=== PATIENT | male | born 1970 | race Caucasian/White ===

== ENCOUNTER 2016-09-16 12:31 | Emergency (ER) | payer OTHER ==
[2016-09-16 12:32] VITALS: BP 137/86; PULSE 98; RESP 20; TEMP 98.5; O2SAT 96
--- NOTE | 2016-09-16 12:51 | PD ---
Physical Exam Time Seen by Provider: 12:50 Narrative 45 y/o male here requesting psychiatric evaluation of suicidal thoughts for 30 years, becoming more consistent. Vital signs reviewed. Seen at triage desk. Awaiting bed placement. Data Data Last Documented VS Vital Signs Date Time Temp Pulse Resp B/P Pulse Ox O2 Delivery O2 Flow Rate FiO2 09/16/16 12:32 98.5 98 20 137/86 96 Room Air MDM Medical Record Reviewed: Yes Supervised Visit with LA: Satinder Chowdhury Sep 16, 2016 12:51
[2016-09-16 13:54] LABS: AUTOMATED NEUTROPHIL # 2.2 TH/MM3 (1.8-7.7); EOSINOPHIL # 0.1 TH/MM3 (0-0.4); EOSINOPHIL % 2.1 % (0.0-4.0); HEMATOCRIT 45.5 % (39.0-51.0); HEMO FLAGS DIFF FINAL; LYMPH % 32.9 % (9.0-44.0); LYMPHOCYTE # 1.3 TH/MM3 (1.0-4.8); MEAN CORPUSCULAR HEMOGLOBIN 33.5 PG (27.0-34.0); MEAN CORPUSCULAR HGB CONC 34.9 % (32.0-36.0); MONO % 8.7 % (0.0-8.0); NEUT % 55.3 % (16.0-70.0); PLATELET COUNT 177 TH/MM3 (150-450); RED BLOOD COUNT 4.74 MIL/MM3 (4.50-5.90); RED CELL DISTRIBUTION WIDTH 14.4 % (11.6-17.2)
--- NOTE | 2016-09-16 14:03 | PD ---
HPI Chief Complaint: Suicide Ideation/Attempt Time Seen by Provider: 14:03 Travel History International Travel<30 days: No Contact w/Intl Traveler<30days: No Traveled to known affect area: No History of Present Illness HPI 45-year-old male with history of depression, bipolar, previous suicide attempts 4, presents to emergency department for evaluation today. Patient states that he was attempting suicide by locking himself in a hotel room with a charcoal grill however his father found him. He states that he was in the room approximately 30 minutes prior to his father's arrival. States he doesn't feel well. Denies a significant headache. No shortness of breath. No chest pain. Patient states that he does drink heavily alcohol and is concerned about going into DTs here. Denies any other symptoms at this time. PFSH Past Medical History Depression: Yes Social History Alcohol Use: Yes Tobacco Use: No Substance Use: No Allergies-Medications (Allergen,Severity, Reaction): Coded Allergies: No Known Allergies (Unverified , 09/16/16) Reported Meds & Prescriptions Reported Meds & Active Scripts Active No Active Prescriptions or Reported Medications Review of Systems Except as stated in HPI: all other systems reviewed are Neg Physical Exam Narrative GENERAL: Well-nourished male patient, ambulatory and in no acute distress SKIN: Focused skin assessment warm/dry. HEAD: Atraumatic. Normocephalic. EYES: Pupils equal and round. No scleral icterus. No injection or drainage. ENT: No nasal bleeding or discharge. Mucous membranes pink and moist. NECK: Trachea midline. No JVD. CARDIOVASCULAR: Elevated rate and rhythm. No murmur appreciated. RESPIRATORY: No accessory muscle use. Clear to auscultation. Breath sounds equal bilaterally. GASTROINTESTINAL: Abdomen soft, non-tender, nondistended. Hepatic and splenic margins not palpable. MUSCULOSKELETAL: No obvious deformities. No clubbing. No cyanosis. No edema. NEUROLOGICAL: Awake and alert. No obvious cranial nerve deficits. Motor grossly within normal limits. Normal speech. Data Data Last Documented VS Vital Signs Date Time Temp Pulse Resp B/P Pulse Ox O2 Delivery O2 Flow Rate FiO2 09/16/16 14:58 100 Non-Rebreather 15.00 100 09/16/16 14:02 98 18 09/16/16 12:32 98.5 137/86 Orders Complete Blood Count With Diff (09/16/16 13:24) Comprehensive Metabolic Panel (09/16/16 13:24) Psych Screen (09/16/16 13:24) Drug Screen, Random Urine (09/16/16 13:24) Alcohol (Ethanol) (09/16/16 13:25) Salicylates (Aspirin) (09/16/16 13:25) Tylenol (Acetaminophen) (09/16/16 13:25) Arterial Blood Gas (Abg) (09/16/16 ) Oxygen Administration (09/16/16 14:03) Labs Laboratory Tests Test 09/16/16 09/16/16 13:35 14:25 White Blood Count 4.0 TH/MM3 Red Blood Count 4.74 MIL/MM3 Hemoglobin 15.9 GM/DL Hematocrit 45.5 % Mean Corpuscular Volume 96.0 FL Mean Corpuscular Hemoglobin 33.5 PG Mean Corpuscular Hemoglobin 34.9 % Concent Red Cell Distribution Width 14.4 % Platelet Count 177 TH/MM3 Mean Platelet Volume 7.1 FL Neutrophils (%) (Auto) 55.3 % Lymphocytes (%) (Auto) 32.9 % Monocytes (%) (Auto) 8.7 % Eosinophils (%) (Auto) 2.1 % Basophils (%) (Auto) 1.0 % Neutrophils # (Auto) 2.2 TH/MM3 Lymphocytes # (Auto) 1.3 TH/MM3 Monocytes # (Auto) 0.4 TH/MM3 Eosinophils # (Auto) 0.1 TH/MM3 Basophils # (Auto) 0.0 TH/MM3 CBC Comment DIFF FINAL Differential Comment Sodium Level 141 MEQ/L Potassium Level 3.8 MEQ/L Chloride Level 104 MEQ/L Carbon Dioxide Level 26.7 MEQ/L Anion Gap 10 MEQ/L Blood Urea Nitrogen 8 MG/DL Creatinine 1.02 MG/DL Estimat Glomerular Filtration 78 ML/MIN Rate Random Glucose 78 MG/DL Calcium Level 8.3 MG/DL Total Bilirubin 1.8 MG/DL Aspartate Amino Transf 116 U/L (AST/SGOT) Alanine Aminotransferase 101 U/L (ALT/SGPT) Alkaline Phosphatase 75 U/L Total Protein 8.2 GM/DL Albumin 3.7 GM/DL Salicylates Level LESS THAN 1.7 MG/DL Acetaminophen Level LESS THAN 2.0 MCG/ML Ethyl Alcohol Level 148 MG/DL Blood Gas Puncture Site LT BRACHIAL Blood Gas Patient Temperature 98.6 Blood Gas HCO3 26 mmol/L Blood Gas Base Excess 1.7 mmol/L Blood Gas Oxygen Saturation 88 % Arterial Blood pH 7.42 Arterial Blood Partial 41 mmHg Pressure CO2 Arterial Blood Partial 74 mmHG Pressure O2 Arterial Blood Oxygen Content 18.9 Vol % Arterial Blood 7.5 % Carboxyhemoglobin Arterial Blood Methemoglobin 0.9 % Blood Gas Hemoglobin 15.3 G/DL Oxygen Delivery Device RA [facility] Medical Decision Making Medical Screen Exam Complete: Yes Emergency Medical Condition: Yes Medical Record Reviewed: Yes Differential Diagnosis Carbon monoxide poisoning versus exposure versus mood disorder versus personality disorder versus adjustment reaction disorder versus substance abuse Narrative Course 45-year-old male presents to emergency department for evaluation following an attempted suicide. Patient appears without distress. His vital signs are stable. Laboratory Tests Test 09/16/16 09/16/16 13:35 14:25 White Blood Count 4.0 TH/MM3 Red Blood Count 4.74 MIL/MM3 Hemoglobin 15.9 GM/DL Hematocrit 45.5 % Mean Corpuscular Volume 96.0 FL Mean Corpuscular Hemoglobin 33.5 PG Mean Corpuscular Hemoglobin 34.9 % Concent Red Cell Distribution Width 14.4 % Platelet Count 177 TH/MM3 Mean Platelet Volume 7.1 FL Neutrophils (%) (Auto) 55.3 % Lymphocytes (%) (Auto) 32.9 % Monocytes (%) (Auto) 8.7 % Eosinophils (%) (Auto) 2.1 % Basophils (%) (Auto) 1.0 % Neutrophils # (Auto) 2.2 TH/MM3 Lymphocytes # (Auto) 1.3 TH/MM3 Monocytes # (Auto) 0.4 TH/MM3 Eosinophils # (Auto) 0.1 TH/MM3 Basophils # (Auto) 0.0 TH/MM3 CBC Comment DIFF FINAL Differential Comment Sodium Level 141 MEQ/L Potassium Level 3.8 MEQ/L Chloride Level 104 MEQ/L Carbon Dioxide Level 26.7 MEQ/L Anion Gap 10 MEQ/L Blood Urea Nitrogen 8 MG/DL Creatinine 1.02 MG/DL Estimat Glomerular Filtration 78 ML/MIN Rate Random Glucose 78 MG/DL Calcium Level 8.3 MG/DL Total Bilirubin 1.8 MG/DL Aspartate Amino Transf 116 U/L (AST/SGOT) Alanine Aminotransferase 101 U/L (ALT/SGPT) Alkaline Phosphatase 75 U/L Total Protein 8.2 GM/DL Albumin 3.7 GM/DL Salicylates Level LESS THAN 1.7 MG/DL Acetaminophen Level LESS THAN 2.0 MCG/ML Ethyl Alcohol Level 148 MG/DL Blood Gas Puncture Site LT BRACHIAL Blood Gas Patient Temperature 98.6 Blood Gas HCO3 26 mmol/L Blood Gas Base Excess 1.7 mmol/L Blood Gas Oxygen Saturation 88 % Arterial Blood pH 7.42 Arterial Blood Partial 41 mmHg Pressure CO2 Arterial Blood Partial 74 mmHG Pressure O2 Arterial Blood Oxygen Content 18.9 Vol % Arterial Blood 7.5 % Carboxyhemoglobin Arterial Blood Methemoglobin 0.9 % Blood Gas Hemoglobin 15.3 G/DL Oxygen Delivery Device RA Patient is placed on high flow oxygen via nonrebreather. I discussed the patient my attending physician. He is placed under Preciado act at this time. Will observe and depending no acute changes, patient will be medically cleared to undergo psychiatric screening for further evaluation and disposition. Mental health screening discussed with the patient. Psychiatric screen ordered. Diagnosis Primary Impression: Carbon monoxide exposure Additional Impression: Suicidal intent Scripts No Active Prescriptions or Reported Meds Condition: Stable Arleth Dotson Sep 16, 2016 14:03
[2016-09-16 14:26] LABS: ALT (GPT) 101 U/L (12-78); ANION GAP 10 MEQ/L (5-15); AST (GOT) 116 U/L (15-37); BICARBONATE 26.7 MEQ/L (21.0-32.0); BLOOD UREA NITROGEN 8 MG/DL (7-18); CHLORIDE 104 MEQ/L (98-107); GLOMERULAR FILTRATION RATE 78 ML/MIN (>89); POTASSIUM 3.8 MEQ/L (3.5-5.1); SODIUM (NA) 141 MEQ/L (136-145)
[2016-09-16 14:28] LABS: ACETAMINOPHEN LESS THAN 2.0 MCG/ML (10.0-30.0); ALKALINE PHOSPHATASE 75 U/L (45-117); TOTAL BILIRUBIN ADULT 1.8 MG/DL (0.2-1.0)
[2016-09-16 14:36] LABS: BLOOD GAS BASE EXCESS 1.7 mmol/L (-2-2); BLOOD GAS CARBOXYHEMOGLOBIN 7.5 % (0-4); BLOOD GAS HCO3 26 mmol/L (22-26); BLOOD GAS METHEMOGLOBIN 0.9 % (0-2); BLOOD GAS O2 HGB SATURATION 88 % (90-100); BLOOD GAS OXYGEN CONTENT 18.9 Vol % (12.0-20.0); BLOOD GAS PCO2 41 mmHg (38-42); BLOOD GAS PO2 74 mmHG (61-120); BLOOD GAS TOTAL HGB 15.3 G/DL (12.0-16.0); TEMP CORR TO 98.6
[2016-09-16 14:37] LABS: CRITICAL VALUE YES; DRAW SITE LT BRACHIAL; NUMBER OF ARTERIAL PUNCTURES 1; OXYGEN DEVICE RA; STAT YES; ULNAR PULSE Y
[2016-09-16 14:58] VITALS: O2SAT 100
[2016-09-16 16:15] VITALS: BP 143/80; PULSE 78; RESP 18; O2SAT 99
[2016-09-16] MEDS ORDERED: ACETAMINOPHEN 325 MG TAB PO ONE (16:15)
[2016-09-16] MEDS ORDERED: LORazepam 2 MG/ML VIAL IV PUSH PRN ×4 (18:30)
[2016-09-16] MEDS ORDERED: FLUMAZENIL 0.5 MG/5 ML VIAL IV PUSH PRN (18:30)
[2016-09-16] MEDS ORDERED: LORazepam 2 MG TAB PO PRN (18:30)
[2016-09-16 21:19] LABS: AMPHETAMINE, URINE NEG (NEG); BARBITURATES, URINE NEG (NEG); COCAINE, URINE POS (NEG)
[2016-09-16 22:05] VITALS: BP 156/75; PULSE 65; RESP 18; O2SAT 95
[2016-09-17 02:00] VITALS: BP 146/72; PULSE 72; RESP 18; O2SAT 94
[2016-09-17] MEDS: LORazepam 1 MG TAB PO PRN ×3 (02:35→13:27)
[2016-09-17 06:15] VITALS: BP 143/69; PULSE 69; RESP 18; O2SAT 97
[2016-09-17 10:00] VITALS: BP 124/72; PULSE 81; RESP 18
[2016-09-17 14:00] VITALS: BP 120/69; PULSE 60; RESP 18
--- NOTE | 2016-09-17 15:23 | PD.PSY.CON ---
Provisional Diagnosis Admission Date Ewing I. Substance induced mood disorder, cocaine and alcohol use disorder, history of depression Ewing II. Unspecified personality disorder Ewing III. No significant medical history History of Present Illness Service Psychiatry Consult Requested By Primary Care Physician No Primary Care Physician HPI The patient is a 45-year-old man, domiciled alone in [place], unemployed, single, with psychiatric history of depression, bipolar, previous suicide attempts 4, cocaine and alcohol use disorder, multiple psychiatric hospitalizations, 3 previous suicidal attempts, self cutting behavior, history of incarcerations, no significant medical history, who presents to emergency department for evaluation today. On arrival Patient states that he was attempting suicide by locking himself in a hotel room with a charcoal grill however his father found him. He states that he was in the room approximately 30 minutes prior to his father's arrival. Today on psychiatric evaluation, patient is clinically sober, he denies depressive symptoms, he denies suicidal ideation, he denies visual and auditory hallucinations. Patient says that yesterday he made a suicidal statement because he was high. He reports the use of alcohol and cocaine. Review of Systems Constitutional: DENIES: Diaphoretic episodes, Fatigue, Fever, Weight gain, Weight loss, Chills, Dizziness, Change in appetite, Night Sweats Endocrine: DENIES: Heat/cold intolerance, Polydipsia, Polyuria, Polyphagia Eyes: DENIES: Blurred vision, Diplopia, Eye inflammation, Eye pain, Vision loss , Photosensitivity, Double Vision Ears, nose, mouth, throat: DENIES: Tinnitus, Hearing loss, Vertigo, Nasal discharge, Oral lesions, Throat pain, Hoarseness, Ear Pain, Running Nose, Epistaxis, Sinus Pain, Toothache, Odynophagia Respiratory: DENIES: Apneas, Cough, Snoring, Wheezing, Hemoptysis, Sputum production, Shortness of breath Genitourinary: DENIES: Sexual dysfunction, Urinary frequency, Urinary incontinence, Urgency, Hematuria, Dysuria, Nocturia, Penile Discharge, Testicular Pain, Testicular Swelling Musculoskeletal: DENIES: Joint pain, Muscle aches, Stiffness, Joint Swelling, Back pain, Neck pain Integumentary: DENIES: Abnormal pigmentation, Nail changes, Pruritus, Rash Hematologic/lymphatic: DENIES: Bruising, Lymphadenopathy Immunologic/allergic: DENIES: Eczema, Urticaria Neurologic: DENIES: Abnormal gait, Headache, Localized weakness, Paresthesias, Seizures, Speech Problems, Tremor, Poor Balance Psychiatric: DENIES: Anxiety, Confusion, Mood changes, Depression, Hallucinations, Agitation, Suicidal Ideation, Homicidal Ideation, Delusions Past Family Social History Coded Allergies: No Known Allergies (Unverified , 09/16/16) No Active Prescriptions or Reported Meds Current Medications Medications (Trade) Dose Ordered Sig/Ever Route Start Time Stop Time Status Last Admin (Romazicon Inj) 0.2 mg Q1M PRN IV PUSH 09/16/16 18:30 (Ativan) 1 mg Q4H PRN PO 09/16/16 18:30 09/17/16 13:27 (Ativan Inj) 1 mg Q4H PRN IV PUSH 09/16/16 18:30 (Ativan) 2 mg Q2H PRN PO 09/16/16 18:30 (Ativan Inj) 2 mg Q2H PRN IV PUSH 09/16/16 18:30 (Ativan Inj) 2 mg Q1H PRN IV PUSH 09/16/16 18:30 (Ativan Inj) 2 mg Q15M PRN IV PUSH 09/16/16 18:30 Family History He denies family psychiatric history Social History Patient was born and raised in [facility], he is single, unemployed, highest level of education is done great Physical Exam Vital Signs Vital Signs Date Time Temp Pulse Resp B/P Pulse Ox O2 Delivery O2 Flow Rate FiO2 09/17/16 14:00 60 18 120/69 Room Air 09/17/16 06:15 97 09/16/16 16:15 15 09/16/16 14:58 100 09/16/16 12:32 98.5 Lab Results Labs Laboratory Tests Test 09/16/16 09/16/16 13:35 14:25 White Blood Count 4.0 TH/MM3 Red Blood Count 4.74 MIL/MM3 Hemoglobin 15.9 GM/DL Hematocrit 45.5 % Mean Corpuscular Volume 96.0 FL Mean Corpuscular Hemoglobin 33.5 PG Mean Corpuscular Hemoglobin 34.9 % Concent Red Cell Distribution Width 14.4 % Platelet Count 177 TH/MM3 Mean Platelet Volume 7.1 FL Neutrophils (%) (Auto) 55.3 % Lymphocytes (%) (Auto) 32.9 % Monocytes (%) (Auto) 8.7 % Eosinophils (%) (Auto) 2.1 % Basophils (%) (Auto) 1.0 % Neutrophils # (Auto) 2.2 TH/MM3 Lymphocytes # (Auto) 1.3 TH/MM3 Monocytes # (Auto) 0.4 TH/MM3 Eosinophils # (Auto) 0.1 TH/MM3 Basophils # (Auto) 0.0 TH/MM3 CBC Comment DIFF FINAL Differential Comment Sodium Level 141 MEQ/L Potassium Level 3.8 MEQ/L Chloride Level 104 MEQ/L Carbon Dioxide Level 26.7 MEQ/L Anion Gap 10 MEQ/L Blood Urea Nitrogen 8 MG/DL Creatinine 1.02 MG/DL Estimat Glomerular Filtration 78 ML/MIN Rate Random Glucose 78 MG/DL Calcium Level 8.3 MG/DL Total Bilirubin 1.8 MG/DL Aspartate Amino Transf 116 U/L (AST/SGOT) Alanine Aminotransferase 101 U/L (ALT/SGPT) Alkaline Phosphatase 75 U/L Total Protein 8.2 GM/DL Albumin 3.7 GM/DL Salicylates Level LESS THAN 1.7 MG/DL Acetaminophen Level LESS THAN 2.0 MCG/ML Ethyl Alcohol Level 148 MG/DL Blood Gas Puncture Site LT BRACHIAL Blood Gas Patient Temperature 98.6 Blood Gas HCO3 26 mmol/L Blood Gas Base Excess 1.7 mmol/L Blood Gas Oxygen Saturation 88 % Arterial Blood pH 7.42 Arterial Blood Partial 41 mmHg Pressure CO2 Arterial Blood Partial 74 mmHG Pressure O2 Arterial Blood Oxygen Content 18.9 Vol % Arterial Blood 7.5 % Carboxyhemoglobin Arterial Blood Methemoglobin 0.9 % Blood Gas Hemoglobin 15.3 G/DL Oxygen Delivery Device RA Mental Status Examination Speech: Unremarkable Orientation: x3 Memory: Unremarkable Thought Process: Logical Thought Content: Unremarkable Hallucination Type: None Suicidal Ideation: No Previous Suicide Attempts: No Homicidal Ideation: No Previous Homicide Attempts: No Judgment: WNL Affect: Good Mood: Appropriate Motor Activity: Normal gait Assessment & Plan Problem List: (1) Substance induced mood disorder Assessment & Plan: On psychiatric evaluation the patient does not present any acute symptomatology of depression, anxiety or psychosis that requires an immediate psychiatric intervention. Patient denies suicidal ideation, he denies this ideation, he denies visual and auditory hallucinations. Suicidal statement made in the ER was most probably related with intoxication with cocaine and alcohol. There are also elements of psychiatric history the make the patient highly suspicious of personality disorder. Patient does not meet criteria for psychiatric admission at this moment. He will be discharged, Preciado act will be lifted.. ICD Code: F19.94 Assessment & Plan Estimated LOS: days Luis Cohen MD Sep 17, 2016 15:23
== END 2016-09-17 14:40 | disposition home or self-care (01) ==
LOC: NEPC 12:31 → NEPJ 09-17 14:40
DX: T14.91 Suicide attempt (principal); T58.12XA Toxic effect of carbon monoxide from utility gas, intentional self-harm, initial encounter; Y92.59 Other trade areas as the place of occurrence of the external cause
CPT/HCPCS: 36600; 80053; 80307; 82805; 85025; 99285